=== PATIENT | male | born 1930 | race Caucasian/White ===

== ENCOUNTER → 2016-06-04 | Outpatient (CLI) | payer MEDICARE, OTHER ==
[~2016-06-04] MED LIST: ACET-784 PO; AMLO-512 PO; AMLO2.5T PO; ARTIFICIAL TEARS OU; ASPI81TA2 PO; BISA10S PR; CALC-978 PO; CALC667T3 PO; DONE10TA PO; FAMO20 PO; FINA5TAB41 PO; HYDR-3965 PO; IMODIUM PO; INSNOV SQ; LINA290C PO; LISI-662 PO; METO-296 PO; MODA100 PO; NEPHRO AID PO; SIMV-260 PO; TAMS0.4C32 PO; VITAD1000 PO
[2016-06-04 11:03] VITALS: BP 103/45
== END | disposition home or self-care (01) ==
LOC: SRCNTR 10:50
PROVIDERS: ATTEND Internal Medicine Cardiovascular Disease
DX: J44.9 Chronic obstructive pulmonary disease, unspecified (principal); I12.0 Hypertensive chronic kidney disease with stage 5 chronic kidney disease or end stage renal disease; N18.6 End stage renal disease; Z99.2 Dependence on renal dialysis; E11.9 Type 2 diabetes mellitus without complications; F03.90 Unspecified dementia, unspecified severity, without behavioral disturbance, psychotic disturbance, mood disturbance, and anxiety; E78.5 Hyperlipidemia, unspecified; Z95.0 Presence of cardiac pacemaker
CPT/HCPCS: G0463

== ENCOUNTER → 2016-08-02 | Outpatient (CLI) | payer MEDICARE, OTHER ==
[~2016-08-02] MED LIST changes: -AMLO2.5T PO
[2016-08-02 11:09] VITALS: BP 141/77
== END | disposition home or self-care (01) ==
LOC: SRCNTR 10:35
PROVIDERS: ATTEND Internal Medicine Cardiovascular Disease
DX: I12.0 Hypertensive chronic kidney disease with stage 5 chronic kidney disease or end stage renal disease (principal); N18.6 End stage renal disease; E11.9 Type 2 diabetes mellitus without complications; E78.5 Hyperlipidemia, unspecified; F03.90 Unspecified dementia, unspecified severity, without behavioral disturbance, psychotic disturbance, mood disturbance, and anxiety; H54.0 Blindness, both eyes; Z95.0 Presence of cardiac pacemaker
CPT/HCPCS: G0463